=== PATIENT | female | born 1980 | race Caucasian/White ===

== ENCOUNTER → 2020-09-19 | Outpatient (CLI) | payer OTHER ==
[~2020-09-19] MED LIST: ALPR0.254 PO; HYDR25TA4 PO; IBUP-1780 PO; IBUP200T48 PO; OXYC-556 PO; PRM25T PO
== END ==
LOC: OCC 00:48
PROVIDERS: ATTEND Family Medicine
DX: Z01.89 Encounter for other specified special examinations (principal)

== ENCOUNTER → 2021-01-05 | Outpatient (CLI) | payer OTHER ==
--- NOTE | 2021-01-05 10:00 | Diagnostic Imaging Report ---
Indication: Chronic neck pain Cervical spine AP and lateral views of the cervical spine shows normal vertebral body height and alignment. There is a slight reversal of lordotic curvature of the mid cervical spine that could be due to muscle spasm. There is no fracture seen. There is slight disc space narrowing C5-C6. IMPRESSION: Possible muscle spasm. Dictated by: Dictated on workstation # [id number]
== END ==
LOC: RAD 09:33
PROVIDERS: ATTEND Family Medicine
DX: M25.512 Pain in left shoulder (principal); M54.2 Cervicalgia
CPT/HCPCS: 72040

== ENCOUNTER → 2021-01-18 | Outpatient (CLI) | payer OTHER ==
--- NOTE | 2021-01-18 11:34 | Diagnostic Imaging Report ---
PROCEDURE: MR imaging cervical spine without contrast. TECHNIQUE: Multiplanar, multisequence MR imaging of the cervical spine was performed without contrast. INDICATION: Chronic bilateral arm pain, new onset neck pain, no known discrete injury. Correlation limited to plain films of the cervical performed in 2008. FINDINGS: Cervical body heights are maintained. The alignment stable and anatomic. The spinal cord itself has a normal volume morphology and signal intensity. There was no paravertebral mass, hemorrhage or fluid collection. The ligamentous structures were intact. The facet relationships normal. The craniocervical relationship, the C1-C2 level appeared normal. C2-C3: Mild leftward focal disc bulge and uncovertebral joint spurring effaces left ventral epidural fat but did not distorts the thecal sac and only mildly narrows the left neural foramen. C3-C4: Osteophyte disc material asymmetric to the left. There is no substantial canal stenosis. There is, however moderate left foraminal narrowing. C4-C5: Osteophyte disc material flattens and effaces the ventral thecal sac with mild spinal canal stenosis. There is a moderate severity of left and mild right neural foraminal stenosis. C5-C6: Osteophyte disc material effaces the ventral thecal sac. There is mild canal stenosis. There is mild right and moderate left foraminal stenosis. C6-C7: Osteophyte disc material is slightly asymmetric to the right. The right neural foramen is mildly narrow, the left foramen patent. No significant canal stenosis. IMPRESSION: Multilevel predominantly left-sided foraminal stenoses owing to asymmetric disc material and uncovertebral joint spurring. No high-grade canal stenosis, normal cord, normal alignment and no acute bony abnormality. Dictated by: Dictated on workstation # [id number]
== END ==
LOC: RAD 10:15
PROVIDERS: ATTEND Family Medicine
DX: M50.11 Cervical disc disorder with radiculopathy, high cervical region (principal); M25.78 Osteophyte, vertebrae; M48.02 Spinal stenosis, cervical region
CPT/HCPCS: 72141

== ENCOUNTER 2021-06-14 09:33 | Outpatient (CLI) | payer OTHER ==
[2021-06-14 09:39] VITALS: BP 120/71
[2021-06-14 09:42] VITALS: BP 120/71
[2021-06-14] MEDS ORDERED: diphenhydrAMINE 50 MG/ML INJ (BENADRYL) IV PRN (09:45)
[2021-06-14] MEDS ORDERED: CASIRIVIMAB/IMDEVIMAB 1,200 MG in NS (IVPB) 250 ML IV ONE (09:45)
[2021-06-14] MEDS ORDERED: ACETAMINOPHEN 500 MG TAB (TYLENOL) PO PRN (09:45)
[2021-06-14] MEDS ORDERED: EPINEPHrine INJECTION 1 MG/ML AMP IM PRN (09:45)
[2021-06-14] MEDS ORDERED: ONDANSETRON 4 MG/2 ML (SDV) Z0FRAN IV PRN (09:45)
[2021-06-14 10:50] VITALS: BP 106/61
== END 2021-06-14 11:19 | disposition home or self-care (01) ==
LOC: INFUSION 09:33
PROVIDERS: ATTEND Family Medicine
DX: Z23 Encounter for immunization (principal); U07.1 COVID-19

== ENCOUNTER → 2021-08-02 | Outpatient (CLI) | payer OTHER ==
--- NOTE | 2021-08-02 08:56 | Diagnostic Imaging Report ---
INDICATION: Chest pain and cough EXAM: PA and lateral chest FINDINGS: The heart size and pulmonary vascularity are normal. Lungs are clear. There are no effusions or pneumothoraces. IMPRESSION: No acute abnormalities in the chest. Dictated by: Dictated on workstation # [id number]
== END ==
LOC: RAD 08:09
PROVIDERS: ATTEND Family Medicine
DX: R05.9 Cough, unspecified (principal); R07.9 Chest pain, unspecified
CPT/HCPCS: 71046

== ENCOUNTER → 2023-03-12 | Outpatient (CLI) | payer OTHER | LOC: LAB 10:58 | PROVIDERS: ATTEND Family Medicine | DX: T14.8XXA Other injury of unspecified body region, initial encounter (principal); W57.XXXA Bitten or stung by nonvenomous insect and other nonvenomous arthropods, initial encounter | CPT/HCPCS: 36415; 86618; 86666; 86668; 86757 ==